=== PATIENT | female | born 1975 | race Caucasian/White ===

== ENCOUNTER 2023-05-25 19:53 | Emergency (ER) | payer OTHER, SELFPAY ==
[2023-05-25 20:03] VITALS: BP 103/63
[2023-05-25 20:33] LABS: % Basophils 0.3 % (0-2); % Eosinophils 2.7 % (0-6); % Immature Granulocytes 0.2 % (0-0.5); % Monocytes 4.8 % (1.7-9.3); Absolute Eosinophils 0.2 10^3/uL (0-0.7); Absolute Lymphocytes 1.8 10^3/uL (1.2-3.4); Absolute Monocytes 0.3 10^3/uL (0.1-0.6); Absolute Neutrophils 4.1 10^3/uL (1.4-6.5); Hematocrit 31.1 % (37.0-47.0); Hemoglobin 11.5 g/dL (12.0-16.0); Mean Corpuscular Volume 86.6 fL (81.0-99.0); Mean Platelet Volume 9.2 fL (7.4-10.4); Nucleated Red Blood Cells % 0 %; Platelet Count 237 10^3/uL (130-400); Red Blood Cell Count 3.59 10^6/uL (4.20-5.40); Red Cell Dist. Width 12.4 % (11.5-14.5); White Blood Cell Count 6.4 10^3/uL (4.8-10.8)
[2023-05-25 20:45] LABS: HCG, Serum Qualitative Screen Negative
[2023-05-25 20:47] LABS: ALT (SGPT) 18 U/L (0-35); AST (SGOT) 27 U/L (14-36); Alkaline Phosphatase 77 U/L (38-126); Blood Urea Nitrogen 16 mg/dl (7-17); Carbon Dioxide 26 mmol/L (22-30); Chloride 107 mmol/L (98-107); Glucose 101 mg/dl (70-99); Potassium 3.9 mmol/L (3.5-5.1); Sodium 137 mmol/L (135-145); Total Protein 6.5 g/dl (6.3-8.2); eGFR > 60.00
[2023-05-25] MEDS: TYLENOL 1000 MG PO (22:21)
--- NOTE | 2023-05-25 22:21 | ED.GENMED ---
History of Present Illness
General
Chief Complaint: Headache
Source: patient
Exam Limitations: none
Time Seen by Provider: 05/25/23 21:54
Travel History
Have you had any contact with someone who has COVID-19?: No
Do you have any symptoms of coronavirus? Fever > 100 degrees, chills, cough, shortness of breath, sore throat, loss of taste or smell, muscle aches, or headache?: No
History of Present Illness
History of Present Illness:
This is a 47 year old female that comes in with c/o headache. States that she has had a headache since Friday. State that nothing that she has taken has helped. State that she tool Aleve, Excedrin Migraine. States that she is nauseated and today the
headache was worse. States that her headache is on top of her head. States that the last time she took anything was 12 noon today. Denies any fever, chills, chest pain. SOB, abd pain, vomiting, diarrhea, dizziness, urinary burning.
Past History
Past History
ED Past Medical History: None; Negative Asthma, HTN, Hypercholesterolemia or NIDDM
ED Past Surgical History: Cholecystectomy
Social History
Tobacco: Non-smoker
Alcohol: None
Personal:
Living: with family
Review of Systems
Review of Systems
All Other Systems: ROS reviewed and negative except as documented in HPI and ROS
Constitutional: Reports no symptoms; Denies fever or chills
EENT: Reports no symptoms
Respiratory: Reports no symptoms; Denies cough or trouble breathing
Cardiac: Reports no symptoms; Denies chest pain
ABD/GI: Reports nausea; Denies abdominal pain, vomiting or diarrhea
: Reports no symptoms; Denies dysuria, frequency or urgency
Musculoskeletal: Reports no symptoms
Skin: Reports no symptoms
Neurological: Reports headache; Denies dizzy
Psychiatric: Reports no symptoms
Phy Exam
General Physical Exam
General Presentation: no apparent distress
General age: appears stated age
General Skin: warm and dry
General Habitus: normal
General Mental: alert and anxious
General Hydration: appears well hydrated
ENT Exam
ENT Exam: TM's normal, pharynx normal and neck supple
Eye Exam
Eye Exam: EOMI
Cardiovascular Exam
Cardiovascular Exam: regular rate/rhythm, no edema, no murmur and normal peripheral pulses
Pulmonary Exam
Pulmonary Exam: lungs clear, no respiratory distress, no rales, chest non tender, no crackles, no rhonchi, no wheezing and no cough
Gastrointestinal Exam
Gastrointestinal Exam: normal bowel sounds, non tender, soft, no organomegaly, no pulsatile mass and non distended
Musculoskeletal Exam
Musculoskeletal Exam: full ROM and no edema
Skin Exam
Skin Exam: normal color, warm/dry, no rash and no petechia
Psychiatric Exam
Psychiatric Exam: normal mood/affect
Course
Orders/Labs/Results
Orders:
Orders
05/25/23 20:[address] [CT Head W/o Iv Contrast] Urgent
Comment:
Reason For Exam: headache
05/25/23 20:09
Test Result ONCE
05/25/23 20:27
CMP [Comprehensive Metabolic Panel] Urgent
Complete Blood Count/With Diff Urgent
HCG, Serum Qualitative Screen Urgent
05/25/23 22:14
0.9% Sodium Chloride 1000 ml [Nss] 1,000 ml IV BOLUS
Acetaminophen [Tylenol] 1,000 mg PO NOW STA
Dexamethasone Sod Phosphate [Decadron] 20 mg IV NOW STA
Diphenhydramine [Benadryl] 25 mg IV NOW STA
Ketorolac [Toradol] 30 mg IV NOW STA
Prochlorperazine [Compazine] 5 mg IV NOW STA
05/25/23 22:27
COVID-19 Antigen Urgent
Source: Nasal Swab
Abnormal Lab Results
05/25/23
20:27
RBC 3.59 L 10^6/uL
(4.20-5.40)
Hgb 11.5 L g/dL
(12.0-16.0)
Hct 31.1 L %
(37.0-47.0)
MCH 32.0 H pg
(27.0-31.0)
Glucose 101 H mg/dl
(70-99)
05/25/23 20:27
05/25/23 20:27
H/H slightly low. Glucose nonfasting. HCG negative. Negative for COVID,
Vital Signs
Initial and Last Documented VS:
Initial Vital Signs
Temp Pulse Resp BP Pulse Ox
98.1 F 93 18 103/63 100
05/25/23 20:03 05/25/23 20:03 05/25/23 20:03 05/25/23 20:03 05/25/23 20:03
Last Documented Vital Signs
Temp Pulse Resp BP Pulse Ox
98.6 F 93 18 96/57 97
05/25/23 23:18 05/25/23 20:03 05/25/23 20:03 05/25/23 23:00 05/25/23 23:15
MDM/Problems Addressed
Differential Diagnosis Includes:
Migraine, COVID,
MDM/Problems Addressed:
This is a 47 year old female that comes in with c/o headache. States that she has had a headache since Friday and nothing that she has taken has helped. Today she started to feel nauseated and this made her nervous.
Will check labs. CT head and give IV fluids with medication for headache pain.
Back into see patient. Patient state that she is feeling better. Will discharge patient home.
Chronic conditions affecting care:
NA
Acute Exacerbation and/or Progression of Chronic Illness:
NA
*Pulse Oximetry
Patient hypoxic: no
*EKG
Interpreted by ED Provider?: NA
Rate: EKG- N/A
*Rat Trapper Interpretation
Rate: Rat Trapper- N/A
*Critical Care Note
Total Time (30-74mins, 75-104mins- exclusive of procedures): Not Applicable
ED Attending Note
-
Portions of this chart may have been created with voice recognition software.� Occasional wrong word or��sound alike� substitutions may have occurred due to the inherent limitations of voice recognition software.
Discharge Plan
Departure
Patient Disposition: Home (Routine Discharge)
Date of Disposition: 05/25/23
Time of Disposition: 23:22
Patient with high blood pressure during this ER visit?: No
Condition: Good
Covid-19: Negative COVID-19
Discharge Problem:
Headache
Instructions: Headache, Adult (DC)
Prescriptions:
No Action
No Current Medications
0
Referrals:
Martin Kennedy DO [Family Provider] - Call in 1-3 days for appt
Activity Restrictions/Additional Instructions:
As discussed, your blood work is normal. Your CT of the head is normal. Please increase your water intake to 8-8oz glasses daily. You may use Tylenol 1000mg every 6 hours for headache pain and Alternate with Ibuprofen 600mg every 6 hours with food
for pain. Follow up with the family doctor for recheck. If this continues you will need to see the Neurologist for further evaluation. IF YOU HAVE ANY OTHER CONCERNS PLEASE RETURN TO THE EMERGENCY ROOM .
Interventions
Interventions:
*Risk Screen - Suicide Last Done: 05/25/23 20:03
*General Assessment Last Done: 05/25/23 20:03
*Neglect/Abuse Screening Last Done: 05/25/23 20:03
ED- Fall Risk Assessment Last Done: 05/25/23 20:03
*ED COVID-19 Vaccine History Last Done: 05/25/23 20:03
ED- Neurological Assessment Last Done: 05/25/23 21:19
[2023-05-25] MEDS: BENADRYL 25 MG IV (22:22)
[2023-05-25] MEDS: TORADOL 30 MG IV (22:23)
[2023-05-25] MEDS: COMPAZINE 5 MG IV (22:23)
[2023-05-25] MEDS: DECADRON 20 MG IV (22:24)
[2023-05-25] MEDS: NSS 1000 IV (22:26)
[2023-05-25 22:32] VITALS: BP 104/62
[2023-05-25 23:00] VITALS: BP 96/57
[2023-05-25 23:04] LABS: COVID-19 Antigen Negative (Negative)
[2023-05-25 23:31] VITALS: BP 107/60
== END 2023-05-25 23:32 | disposition home or self-care (01) ==
LOC: EMR 19:53
PROVIDERS: Clinical Nurse Specialist Family Health; Emergency Medicine; EMERGENCY PHYSICIAN Student in an Organized Health Care Education/Training Program; FAMILY PHYSICIAN Family Medicine
DX: R51.9 Headache, unspecified (principal); R11.0 Nausea; Z11.52 Encounter for screening for COVID-19; Z90.49 Acquired absence of other specified parts of digestive tract
CPT/HCPCS: 99284; 96374; 96375 ×3; 96361; 70450; 80053; 84703; 85025; 87811

== ENCOUNTER → 2024-02-04 12:51 | Outpatient (REF) | payer OTHER, SELFPAY | LOC: HWWDC 12:51 | PROVIDERS: ATTENDING PHYSICIAN Nurse Practitioner Family | DX: Z12.31 Encounter for screening mammogram for malignant neoplasm of breast (principal) | CPT/HCPCS: 77063; 77067 ==

== ENCOUNTER → 2024-03-01 10:33 | Outpatient (REF) | payer OTHER, SELFPAY | LOC: HWRAD 10:33 | PROVIDERS: ATTENDING PHYSICIAN Nurse Practitioner Family | DX: N92.6 Irregular menstruation, unspecified (principal) | CPT/HCPCS: 76830; 76856 ==